=== PATIENT | male | born 1960 | race Caucasian/White ===

== ENCOUNTER 2017-02-28 09:29 | Outpatient (CLI) | payer BC ==
[2017-02-28] MEDS ORDERED: GADOBUTROL 10 ML VIAL IVP ONE (10:37)
[2017-02-28] MEDS ORDERED: fentaNYL 100 MCG/2 ML INJ ONE (11:03)
[2017-02-28] MEDS ORDERED: NALOXONE HCL 0.4 MG/ML INJ ONE (11:03)
[2017-02-28] MEDS ORDERED: MIDAZOLAM 2 MG/2 ML VIAL ONE (11:03)
[2017-02-28] MEDS ORDERED: FLUMAZENIL 0.5 MG/5 ML MDV IVP ONE (11:03)
[2017-02-28 11:09] LABS: CREATININE 0.7 mg/dL (0.7-1.3); GLOMERULAR FILTRATION RATE > 60
== END 2017-02-28 13:00 | disposition home health service (06) ==
LOC: FIMAGING 09:29
PROVIDERS: ATTEND Neurological Surgery
PROC: B030YZZ Magnetic Resonance Imaging (MRI) of Brain using Other Contrast (ICD-10-PCS; principal; 2017-02-28 12:03)
DX: G20 Parkinson's disease (principal)
CPT/HCPCS: A9585; J2250; J2310; J3010

== ENCOUNTER → 2017-03-12 | Day surgery (SDC) | payer BC ==
[2017-03-03 13:21] LABS: ANION GAP 11 mEq/L (8-16); CALCIUM 10.2 mg/dL (8.5-10.4); CARBON DIOXIDE 27 mEq/l (22-31); CHLORIDE 104 mEq/L (97-110); CREATININE 0.7 mg/dL (0.7-1.3); GLOMERULAR FILTRATION RATE > 60; GLUCOSE 126 mg/dL (70-100); POTASSIUM 3.9 mEq/L (3.5-5.2); SODIUM 142 mEq/L (134-144)
--- NOTE | 2017-03-04 07:48 | CPEKG ---
Heart Rate: 64 RR Interval: 938 P-R Interval: 176 QRSD Interval: 102 QT Interval: 384 QTC Interval: 396 P Jefferson: 42 QRS Jefferson: 34 T Wave Jefferson: 19 EKG Severity - NORMAL ECG - EKG Impression: SINUS RHYTHM Electronically Signed By: Arden Mejia 05-Mar-2017 09:12:49
[~2017-03-12] MED LIST: BUPIVACAINE/EPI 0.25% 30 ML SDV ONE; CEFUROXIME 1,500 MG in NS 50 ML IV ONE; LIDOCAINE 1% 5 ML SDV ID PRN; LR 1,000 ML IV ONE; THROMBIN (BOVINE) 20,000 UNIT VIAL TP ONE
== END | disposition home or self-care (01) ==
LOC: F3N 05:30 → UNDOADMIN 05:30 → FSGY 05:30 → EDSTATUS 07:15
PROVIDERS: ATTEND Neurological Surgery
DX: G20 Parkinson's disease (principal); Z53.20 Procedure and treatment not carried out because of patient's decision for unspecified reasons
CPT/HCPCS: J0697

== ENCOUNTER 2017-03-19 05:34 | Inpatient (IN) | payer BC ==
[2017-03-19] MEDS ORDERED: CEFUROXIME 1,500 MG in NS 50 ML IV ONE (06:00)
[2017-03-19] MEDS ORDERED: LIDOCAINE 1% 2 ML INJ ONE (06:20)
[2017-03-19 06:47] LABS: % IMMATURE GRANULYOCYTES 0.3 % (0.0-1.1); ABSOLUTE IMMATURE GRANULOCYTES 0.02 10^3/uL (0.00-0.10); ADD DIFF? NO; ADD MORPH? NO; ADD SCAN? NO; ATYPICAL LYMPHOCYTE FLAG 0 (0-99); FRAGMENT RBC FLAG 0 (0-99); HEMATOCRIT 39.6 % (40.0-51.0); HEMOGLOBIN 13.2 g/dL (13.7-17.5); LEFT SHIFT FLG 0 (0-99); LIPEMIA HEMOLYSIS FLAG 80 (0-99); MEAN CELL HEMOGLOBIN 27.1 pg (27.9-34.1); MEAN CELL HEMOGLOBIN CONCENTR. 33.3 g/dL (32.4-36.7); MEAN CELL VOLUME 81.3 fL (81.5-99.8); PLATELET CLUMPS FLAG 0 (0-99); PLATELET COUNT 223 10^3/uL (150-400); RED BLOOD CELL COUNT 4.87 10^6/uL (4.40-6.38); RED CELL DISTRIBUTION WIDTH 14.3 % (11.5-15.2)
[2017-03-19] MEDS ORDERED: LIDOCAINE 1% 5 ML SDV ID PRN (06:50)
[2017-03-19] MEDS ORDERED: LR 1,000 ML IV ONE (06:50)
[2017-03-19 06:58] LABS: INR 0.98 (0.83-1.16); PROTIME(PATIENT) 12.9 SEC (12.0-15.0)
[2017-03-19 06:59] LABS: APTT 27.2 SEC (23.0-38.0)
[2017-03-19] MEDS ORDERED: BACITRACIN 50,000 UNITS/10 ML SYR IRR ONE (07:07)
[2017-03-19] MEDS ORDERED: BUPIVACAINE/EPI 0.25% 30 ML SDV ONE (07:07)
[2017-03-19] MEDS ORDERED: THROMBIN (BOVINE) 20,000 UNIT VIAL TP ONE ×2 (07:07→07:26)
[2017-03-19] MEDS ORDERED: DEXMEDETOMIDINE HCL 200 MCG/2 ML VIAL IV ONE (07:17)
[2017-03-19] MEDS ORDERED: fentaNYL 100 MCG/2 ML INJ ONE ×3 (07:21→12:47)
[2017-03-19] MEDS ORDERED: PROPOFOL/EMULSION 500 MG/50 ML BOTTLE IV ONE (07:50)
[2017-03-19] MEDS ORDERED: ENALAPRILAT DIHYDRATE 1.25 MG/ML VIAL ONE (09:35)
[2017-03-19] MEDS ORDERED: LIDOCAINE 2% 5 ML SDV ONE ×2 (09:35)
[2017-03-19] MEDS ORDERED: ONDANSETRON 4 MG/2 ML VIAL ONE (11:34)
[2017-03-19] MEDS ORDERED: GABAPENTIN 300 MG CAP PO PRN (12:10)
[2017-03-19] MEDS ORDERED: BISACODYL 10 MG SUPP PR PRN (13:05)
[2017-03-19] MEDS ORDERED: LACTULOSE 20 GM/30 ML UDCUP PO PRN (13:05)
[2017-03-19] MEDS ORDERED: MAGNESIUM HYDROXIDE 30 ML UDCUP PO PRN (13:05)
[2017-03-19] MEDS ORDERED: POLYETHYLENE GLYCOL 3350 17 GM PKT PO PRN (13:05)
[2017-03-19] MEDS ORDERED: MAG HYDROX/AL HYDROX/SIMETH 30 ML UDCUP PO PRN (13:05)
[2017-03-19] MEDS ORDERED: HYDROmorphONE/DILAUDID 1 MG/ML SYR IVP PRN (13:05)
[2017-03-19] MEDS ORDERED: ACETAMINOPHEN 325 MG TAB PO PRN (13:05)
[2017-03-19] MEDS ORDERED: ONDANSETRON 4 MG/2 ML VIAL IVP PRN (13:05)
[2017-03-19] MEDS ORDERED: hydrALAZINE 20 MG/ML VIAL IVP PRN (13:08)
--- NOTE | 2017-03-19 13:48 | GOP ---
[f rep st] OPERATIVE REPORT DATE OF OPERATION: 03/19/2017 SURGEON: Nancy Desir DO NEUROSURGEON: Vida Desir D.O. DIETARY COOK: None. PREOPERATIVE DIAGNOSIS: Parkinson disease. POSTOPERATIVE DIAGNOSIS: Parkinson disease. PROCEDURE PERFORMED: 1. Right deep brain stimulation to the STN nucleus. 2. Stealth stereotaxis. 3. O-arm stereotaxis. FINDINGS: ESTIMATED BLOOD LOSS: 20 mL. INDICATIONS: This is a 57-year-old male with idiopathic Parkinson disease, who has undergone a mult idisciplinary evaluation for deep brain stimulation to the right STN for left-sided symptoms. He el ected to move forward with surgery as he was found to be a good candidate. DESCRIPTION OF PROCEDURE: He was identified, consented, sites were marked. Brought to the operatin g room, anesthetized under local. Hair was clipped with the OR clippers. Head was cleansed with Ch loraPrep, using Betadine ointment on the pin sites. The Leksell frame was measured, placed stereota ctically. He was taken downstairs, a stereotactic CAT scan was performed with a localizer box, alexandre peres upstairs and registered in the [employer] Speech 3.0 software and the preoperative plan. The AC-PC line w as 24.06, X of 12.4, Y of -3.59, Z of -5.36. The entry point was an X of 43.28, Y of 25.37, Z of 72 .82. This corresponded to 21.6 degrees off midsagittal, 69.4 degrees off midaxial corresponding to Leksell frame coordinates of 87 X, Y of 98.5, Z of 113.5, a ring of 70 degrees, and arc of 74.2 degr ees; this is 0.5 mm predicted error. We then performed an O-arm spin with a localizer box and re-re gistered, finding that the stereotactic frame coordinates were an X of 87, Y of 98.5, Z of 113.5, a ring of 78, and an arc of 74.3 degrees. We elected to move forward with the O-arm coordinates with a 0.4 mm predicted error. He was prepped and draped in the usual sterile fashion. Leksell frame co ordinates were set and triple checked by all providers in the room. The incision site was marked using the [place]xell frame coordinates and anesthetized with 0.5% Marcaine with epinephrine. A half-rowell incision was made. A periosteal elevator was used to elevate the pe riosteum, and the bone site was marked. A forestry pilot hole was drilled, then a 14 mm bur hole was drilled , and the edges were waxed. We placed the Navigus Stimloc device, locked into place with 5 mm Synth es screws, verified it clipped and locked, then opened the dura with an 11 blade. Performed a cente r tract and did not get a significant STN. Got STN higher up than we would have expected or what lo oked like STN higher up than we expected. Attempted to map the STN with an anterior track and got n o recordings. Please again refer to BG. Elected to move medial as the patient has an asymmetric v entricle, and we suspected that we may have been lateral, so using medial for mapping, got into STN approximately 10 above target and out of STN 4 above target with solid motor driving and classic STN , thinking perhaps his anatomy has shifted. We then elected to test the lead at the bottom of the b ottom contact at 4 above, which was where we got out of STN on our microelectrode recording. We jo eleno this. We had some paresthesias that were transient at lower voltages and a very programmable le ad with improvement in his rigidity. He had no tremor to test, and he had no significant side effec ts. We elected to leave the lead at the bottom of the bottom contact. We took an x-ray with the emily mbsights. We then retracted the cannula, removed the stylet, clipped and locked the locking mechani sm, marked the lead, brought it out, locked it into place, then took an O-arm spin. We had excellen t placement compared to target and expected lead placement. We then placed the boot over the lead, placed extension over the lead, locked the extension into place, protecting each contact, brought th e boot over the lead extension complex, tied in position with 2-0 silk ties at 2 positions, tunneled posterior with a periosteal elevator. Anesthetized with 0.5% Marcaine with epinephrine. Stab inci quang was made. Tunneled posterior to anterior, brought the lead extension down and out, cut it at t he skin, coiling the lead posterior and around the incision. Copiously irrigated with over a liter of gentamicin-infused saline. Took a final x-ray and there had been no lead migration. Closed the galea with 2-0 Vicryl pop-offs. The skin was closed with 3-0 running nylon. The wound was dressed with Xeroform and Telfa. The frame was removed. His head was draped. He had an excellent lesional effect, and I expect to have very good results from this. The patient was pleased. Family was info rmed. MICROELECTRODE RECORDING: Karen Mosley, PAC. Please refer to Karen Mosley's BG recording, a pproximately 2 hours of BG. FLUIDS: 1500 mL of crystalloid. URINE OUTPUT: 400 mL. DRAINS: None. COMPLICATIONS: None. /[id number]/MODL
[2017-03-19] MEDS ORDERED: HYDROmorphONE/DILAUDID 1 MG/ML SYR ONE (14:05)
--- NOTE | 2017-03-19 14:10 | POSTOPPROG ---
Post Op Note Date of Operation: 03/19/17 Surgeon: Nancy Desir Agricultural Research Technician: Karen Mosley PA-C Anesthesia: IV Sedation Pre-op Diagnosis: Parkinson's Post-op Diagnosis: Parkinson's Procedure: Right STN DBS lead placement Inf/Abcess present in the surg proc area at time of surgery?: No EBL: Minimal Plan Plan: 57 yo male s/p right STN DBS lead placement - neuro stable - maintain SBP < 140 - postop head CT stable - pain control - advance diet as tolerated - dc home likely tomorrow Exam Awake. Alert. PERRL. Facial expression symmetrical Muscle strength full at 5/5 Sensation intact
--- NOTE | 2017-03-19 14:58 | GPN ---
[f rep st] PROCEDURE NOTE DATE OF PROCEDURE: 03/19/2017 PREOPERATIVE DIAGNOSIS: Parkinson disease. POSTOPERATIVE DIAGNOSIS: Parkinson disease. PROCEDURE PERFORMED: Intraoperative functional subcortical mapping by microelectrode recording and stimulation. COMPLICATIONS: None. INDICATIONS FOR PROCEDURE: Determination of optimal electrode lead placement for deep brain stimulation therapy for Parkinson disease to the STN. DESCRIPTION OF PROCEDURE: An incision was made and a dillon hole was drilled on the right side. The arc was then arranged with coordinates calculated from the MRI and CT scan of the head. X is 87.0, Y is 98.5, Z is 113.5, ring is 78, arc is 74.3 with target of STN. We first ran essential tract, and although there was evidence of several cell bursts above target, there was no evidence of entering STN, as well as with an anterior tract there was no evidence of STN. We then proceeded with the posterior tract, and there was change in stimulation , indicating entering STN at 10 above target. There was a change with the recordings with shoulder passive range of motion at 7.2 above target and elbow extension and flexion at 5.4 above target. We exited STN around 4 above target. With these recordings, we then proceeded to continue with test stimulation with the lead. The bottom of the lead was placed at 4 above target. At 0- the patient had hand tingling at 1.0 on the left side. At 2.0 it was persistent. At 1- the patient had persistent tingling at 2.5, as well as difficulties with coordination. At 2- at 3.5 amplitude, the patient had some transient tingling. At 3-, the patient had no side effects up to 3.5. With a bipolar study utilizing 1 and 2 contacts, the patient had no side effects up to 3.5. Due to the microelectrode recordings obtained and test stimulation, we elected to place the lead at this location with the posterior tract at 4 above target. Patient tolerated the surgery well and was transferred to recovery without any complications. /[id number]/MODL MTDD
[2017-03-19] MEDS: NS W/ 20 KCl/L 1,000 ML IV SCH (15:38)
[2017-03-19] MEDS: HYDROCODONE/APAP 10/325 TAB PO PRN ×3 (15:38→21:43)
[2017-03-19] MEDS: CEFUROXIME 1,500 MG in NS 50 ML IV SCH ×2 (15:38→20:53)
[2017-03-19] MEDS: metFORMIN HCL 500 MG TAB PO SCH (17:33)
[2017-03-19] MEDS: TRIHEXYPHENIDYL HCL 2 MG TAB PO SCH ×2 (17:39→20:52)
[2017-03-19] MEDS: SENNOSIDES/DOCUSATE SODIUM TAB PO SCH (20:52)
[2017-03-19] MEDS: glyBURIDE 5 MG TAB PO SCH (20:53)
[2017-03-19] MEDS ORDERED: ADDERALL 10 MG TAB PO SCH (21:00)
[2017-03-19] MEDS ORDERED: Rasagiline Mesylate [Azilect] 1 MG PO SCH ×2 (21:00→22:00)
[2017-03-19] MEDS ORDERED: ROPINIROLE 6 MG PO SCH ×2 (21:00→22:00)
[2017-03-19] MEDS ORDERED: ATORVASTATIN CALCIUM 20 MG TAB PO SCH (21:00)
[2017-03-19] MEDS: DIAZEPAM 5 MG TAB PO PRN (21:43)
[2017-03-20] MEDS: NS W/ 20 KCl/L 1,000 ML IV SCH (02:16)
[2017-03-20] MEDS: HYDROCODONE/APAP 10/325 TAB PO PRN ×4 (02:17→17:24)
[2017-03-20] MEDS: DIAZEPAM 5 MG TAB PO PRN ×3 (06:24→18:52)
--- NOTE | 2017-03-20 08:59 | NEUSURGPN ---
Assessment/Plan: 57 yo male s/p right STN DBS lead placement POD#1 - neuro stable - maintain SBP < 140 - postop head CT stable - pain control - continue current regimen. Valium helpful per pt. - advance diet as tolerated - dc home likely today pending clinical course - D/w Dr Desir - Call NS with any issues Subjective: Pt resting in bed, states headache and pressure sensation have improved. Objective: AAOx3 NAD VSS MAEx4 Incision cdi sutures intact Telfa removed and new headwrap applied Urinary Catheter in Place: No Catheter Insertion Date: 03/19/17 - Physician Discussed Patient with : [facility] Physical Exam - Vitals, I&O, Labs I and O 03/19/17 03/20/17 03/21/17 05:59 05:59 05:59 Intake Total 2900 Output Total 1020 500 Balance 1880 -500 Weight 95.254 kg Intake: Oral (ml) 300 IV Intake (ml) 2050 IV Infused (ml) 550 Cefuroxime 1,500 mg In Ns 50 50 ml @ 200 mls/hr IV Q8HRS [facility] Rx#:[id number] NS W/ 20 KCl/L 1,000 ml @ 500 100 mls/hr IV CONT [facility]RA Rx#:[id number] Output: Urine (ml) 1000 500 Catheter 400 Urinal 600 500 Estimated Blood Loss (ml) 20 Other: Number of Voids Urinal 1 Vital Signs Temp Pulse Resp BP Pulse Ox 36.9 C 90 18 130/82 H 92 03/20/17 08:00 03/20/17 08:00 03/20/17 08:00 03/20/17 08:00 03/20/17 08:00 Laboratory Results 03/19/17 06:30 ICD10 Worksheet Patient Problems: Problems Problem Status Onset Parkinson disease Acute - ICD10 Problem Qualifiers (1) Parkinson disease
[2017-03-20] MEDS ORDERED: LOSARTAN PO SCH (09:00)
[2017-03-20] MEDS ORDERED: HYDROCHLOROTHIAZIDE PO SCH (09:00)
[2017-03-20] MEDS ORDERED: PROPRANOLOL SR 80 MG CAP PO SCH (09:00)
[2017-03-20] MEDS ORDERED: LOSARTAN/HCTZ 50/12.5 1 TAB PO SCH (09:00)
[2017-03-20] MEDS: metFORMIN HCL 500 MG TAB PO SCH ×2 (09:26→17:25)
[2017-03-20] MEDS: TRIHEXYPHENIDYL HCL 2 MG TAB PO SCH ×2 (09:27→16:40)
[2017-03-20] MEDS: SENNOSIDES/DOCUSATE SODIUM TAB PO SCH (09:27)
[2017-03-20] MEDS: glyBURIDE 5 MG TAB PO SCH (09:27)
[2017-03-20] MEDS ORDERED: glyBURIDE 5 MG TAB PO ONE (10:15)
[2017-03-20] MEDS ORDERED: glyBURIDE 5 MG TAB PO SCH ×2 (10:15→18:00)
[2017-03-20 12:16] VITALS: O2SAT 94
[2017-03-20 15:31] VITALS: BP 95/62; PULSE 72; RESP 18; TEMP 98.6
[2017-03-22] MEDS ORDERED: ENOXAPARIN 40 MG/0.4 ML SYR SC SCH (09:00)
== END 2017-03-20 18:57 | disposition home or self-care (01) | DRG 30 ==
LOC: F2N 05:34 → F3N 14:21
PROVIDERS: ADMIT Neurological Surgery; ATTEND Neurological Surgery
PROC: 00HU0MZ Insertion of Neurostimulator Lead into Spinal Canal, Open Approach (ICD-10-PCS; principal; 2017-03-19 07:15)
DX: G20 Parkinson's disease (principal)
CPT/HCPCS: C1713; J0360; J0697; J1170; J2405; J2704; J3010

== ENCOUNTER → 2017-04-04 | Outpatient (CLI) | payer BC | LOC: FIMAGING 14:43 | PROVIDERS: ATTEND Neurological Surgery | DX: Z01.811 Encounter for preprocedural respiratory examination (principal) ==

== ENCOUNTER → 2017-04-09 | Day surgery (SDC) | payer BC ==
[~2017-04-09] MED LIST changes: +ACETAMINOPHEN 500 MG TAB ONE; +BACITRACIN 50,000 UNITS/10 ML SYR IRR ONE; +DEXAMETHASONE 4 MG/ML VIAL ONE; +HYDROCODONE/APAP 5/325 TAB ONE; +INSULIN REGULAR HUMAN 100 UNIT/ML IVP ONE; +INSULIN REGULAR HUMAN 100 UNIT/ML ONE; +INSULIN REGULAR HUMAN 100 UNIT/ML SC ONE; +LIDOCAINE 1% 2 ML INJ ONE; +LIDOCAINE 2% 5 ML SDV ONE; +MIDAZOLAM 2 MG/2 ML VIAL ONE; +ONDANSETRON 4 MG/2 ML VIAL ONE; +PROPOFOL/EMULSION 500 MG/50 ML BOTTLE IV ONE; +ROCURONIUM 50 MG/5 ML VIAL ONE; +SUGAMMADEX SODIUM 200 MG/2 ML VIAL IVP ONE; -THROMBIN (BOVINE) 20,000 UNIT VIAL TP ONE; +fentaNYL 100 MCG/2 ML INJ ONE; +metFORMIN HCL 500 MG TAB PO ONE
--- NOTE | 2017-04-09 08:55 | GOP ---
[f rep st] OPERATIVE REPORT DATE OF OPERATION: 04/09/2017 SURGEON: Nancy Desir DO NEUROSURGEON: Nancy Desir DO. STOCK HANDLER FLOORPERSON: YOGI Devine. PREOPERATIVE DIAGNOSIS: Parkinson disease. POSTOPERATIVE DIAGNOSIS: Parkinson disease. PROCEDURE PERFORMED: Placement of right deep brain stimulator, internal pulse generator, Medtronic Activa SC with connection to indwelling deep brain stimulator lead to the STN nucleus. FINDINGS: SPECIMENS: None. ESTIMATED BLOOD LOSS: 25 mL. INDICATIONS: This is a 57-year-old male with idiopathic Parkinson disease, who underwent STN deep b rain stimulator lead placement on the right side. He returns today for generator placement. He was identified, consented. Sites were marked. DESCRIPTION OF PROCEDURE: Brought to the operating room, anesthetized under general trachea anesthe lima. Hair was clipped with the OR clippers. Incision sites were marked. He was prepped and draped in the usual sterile fashion. Incision at the chest wall was anesthetized with 0.25% Marcaine with epinephrine. Incision was made just lateral to lead extension complex with a 10 blade, and it was dissected out with Metzenbaum scissors. Incision was made at the chest wall with a 10 blade, and a fascial pocket was created with blunt dissection and Metzenbaum scissors. Hemostasis was obtained w ith bipolar cautery. We then tunneled with a Prompt.lytronic tunneler in a single pass over the clavicle, bringing the lead extension up and out, cut the lead extension cap ties with a 15 blade, retracted the boot, protecting each contact. Removed the extension cap with the torque wrench, discarded the boot and the cap. Placed a new boot, gently dried the lead, placed it into the extension, locked in to place protecting each contact with the torque wrench. Brought the boot over the lead extension c omplex, tied it into position with 2-0 silk ties at 2 positions, brought it flat against the skull, placed the lead into the generator, and locked into place with the torque wrench. Coiled the wires posterior to the generator, placed it into the pocket. Checked impedances and all impedances were g ood. Sutured the generator to the anterior chest wall with 2-0 silk at 2 positions, copiously irrig ated with over a liter each of bacitracin-infused saline. Closed the galea of the head with 2-0 Magen ryl pop-offs and the skin with 3-0 running nylon. At the chest wall, closed the fascia with 2-0 Magen ryl pop-offs, subcutaneous layer with 3-0 Vicryl pop-offs. The skin was closed with 4-0 running Mon ocryl and Dermabond. Head incision was dressed with Xeroform and Medipore tape. Patient tolerated the procedure well. No complications. FLUIDS: 800 mL of crystalloid. URINE OUTPUT: None. DRAINS: None. COMPLICATIONS: None. /[id number]/MODL
== END | disposition home or self-care (01) ==
LOC: FSGY 05:28
PROVIDERS: ATTEND Neurological Surgery
PROC: 0JH60BZ Insertion of Single Array Stimulator Generator into Chest Subcutaneous Tissue and Fascia, Open Approach (ICD-10-PCS; principal; 2017-04-09 07:15)
DX: G20 Parkinson's disease (principal); E11.9 Type 2 diabetes mellitus without complications; I10 Essential (primary) hypertension
CPT/HCPCS: C1767; C1787; C1883; J0697; J1100; J1815; J2250; J2405; J2704; J3010